=== PATIENT | male | born 1950 | race Caucasian/White ===

== ENCOUNTER 2018-12-16 12:10 | Inpatient (IN) | payer MEDICARE, OTHER ==
[~2018-12-16] VITALS: Ht 172.7 cm; Wt 102.8 kg
[2018-12-16] MEDS ORDERED: ALBUTEROL SULF 2.5 MG/0.5ML(0.5%) NEB SOLN NEB ONE (13:45)
[2018-12-16] MEDS ORDERED: IPRATROPIUM BROM 0.5 MG/2.5ML INH SOL NEB ONE (13:45)
[2018-12-16 14:08] LABS: Albumin 3.5 g/dL (3.4-5.0); Calcium 8.8 mg/dL (8.5-10.1)
[2018-12-16 14:13] LABS: BUN/Creatinine Ratio 17.8; Bilirubin, Total 0.6 mg/dL (0.2-1.0); Total Protein 7.2 g/dL (6.4-8.2)
[2018-12-16 14:27] LABS: Basophils # (auto) 0.1 uL; Basophils % (auto) 0.8 % (0.0-2.0); Eosinophils # (auto) 0.1 uL; Eosinophils % (auto) 1.4 % (0.0-7.0); Lymphocytes # (auto) 1.3 uL; Lymphocytes % (auto) 12.5 % (10.0-50.0); Mean Corpuscular Hemoglobin 31.5 pg (28.0-32.0); Mean Corpuscular Hgb Conc. 33.3 g/dL (32.0-36.0); Mean Corpuscular Volume 94.7 fL (80.0-100.0); Monocytes # (auto) 0.7 uL; Monocytes % (auto) 6.1 % (0.0-12.0); Neutrophils # (auto) 8.5 uL; Neutrophils % (auto) 79.2 % (37.0-80.0); Platelet Count (auto) 279 10^3/uL (140-450); Red Blood Cells 4.12 10^6/uL (4.5-5.90); Red Cell Distribution Width 14.9 % (11.8-14.3); White Blood Cell 10.7 10^3/uL (4.4-10.8)
[2018-12-16] MEDS ORDERED: IOHEXOL 350 MG/ML 100ML IJ ONE (17:03)
[2018-12-16] MEDS ORDERED: METOPROLOL TARTRATE 25 MG TAB PO ONE (22:30)
[2018-12-16] MEDS ORDERED: MORPHINE SULF INJ 2 MG/ML SYRINGE 1ML IV PRN ×2 (22:30)
[2018-12-16] MEDS ORDERED: ENOXAPARIN SOD 100 MG/1 ML SYRINGE SC ONE (22:30)
[2018-12-16] MEDS ORDERED: NITROGLYCERIN 0.4 MG SL TAB SL PRN (22:30)
[2018-12-16] MEDS ORDERED: FUROSEMIDE 40 MG/4 ML VIAL IV ONE (22:45)
[2018-12-16 23:40] VITALS: BP 161/111
--- NOTE | 2018-12-16 23:40 | NUR ---
Telemetry admit from [facility] admitted to Telemetry unit after SBAR received. Patient oriented to MARY BOWLES RN primary RN, unit, room, bed, and unit policies regarding patient care and visiting hours. Patient now on continuous telemetry monitoring, tele box #21 and telemetry reading on arrival to unit is Sinus Tachycardia. Patient placed on bedside oxygen, weighed by bedscale and encouraged to call if they need something. All questions and concerns addressed, patient verbalized understanding.
[2018-12-17] VITALS (7 sets, daily range): BP systolic 138–161; BP diastolic 82–111
[2018-12-17 00:10] LABS: Urine Bacteria NONE SEEN /hpf (None Seen); Urine Blood Negative /uL (Negative); Urine Mucus FEW (None Seen); Urine WBC 2 /hpf (0 - 3)
[2018-12-17 00:15] LABS: Urine Specific Gravity 1.064 (1.001-1.035)
[2018-12-17] MEDS ORDERED: hydrALAZINE HCL 10 MG TAB PO ONE (00:45)
--- NOTE | 2018-12-17 02:16 | NUR ---
Patient ambulated to bathroom. Mild shortness of breath upon returning to bed. Replaced o2 at 2LPM. O2 saturation at 98%
[2018-12-17] MEDS: ALBUTEROL SULF 2.5 MG/0.5ML(0.5%) NEB SOLN NEB PRN (03:51)
[2018-12-17] MEDS: IPRATROPIUM BROM 0.5 MG/2.5ML INH SOL NEB PRN (03:51)
[2018-12-17 05:58] LABS: Basophils # (auto) 0.1 uL; Basophils % (auto) 0.9 % (0.0-2.0); Eosinophils # (auto) 0.1 uL; Hematocrit 39.1 % (41.0-53.0); Hemoglobin 12.9 g/dL (13.5-17.5); Lymphocytes # (auto) 1.8 uL; Lymphocytes % (auto) 18.9 % (10.0-50.0); Mean Corpuscular Hemoglobin 31.5 pg (28.0-32.0); Mean Corpuscular Hgb Conc. 33.1 g/dL (32.0-36.0); Monocytes # (auto) 0.7 uL; Monocytes % (auto) 7.6 % (0.0-12.0); Neutrophils # (auto) 6.9 uL; Neutrophils % (auto) 71.6 % (37.0-80.0); Nucleated Red Blood Cells % 0.1 %; Platelet Count (auto) 285 10^3/uL (140-450); Red Blood Cells 4.11 10^6/uL (4.5-5.90); White Blood Cell 9.6 10^3/uL (4.4-10.8)
[2018-12-17 06:33] LABS: Calcium 8.7 mg/dL (8.5-10.1); Potassium 3.8 mmol/L (3.5-5.1)
--- NOTE | 2018-12-17 07:36 | NUR ---
Endorsed care to day shift RN. Patient in bed awake watching tv with no signs of distress.
--- NOTE | 2018-12-17 07:45 | NUR ---
Opening Shift Note Assumed care of patient, awake and alert, sitting on bed eating breakfast. No S/S of distress/SOB or chest pain. Instructed on POC and to call for assist PRN, will continue to monitor for changes Q1hr and PRN.
--- NOTE | 2018-12-17 07:47 | NUR ---
Respiratory note: PT AWAKE AND ALERT. NO RESPIRATORY DISTRESS NOTED. SPO2 98% ON 2 L NC, HR 107, RR 18, BS CLEAR T/O. PRN MEDNEB TX NOT INDICATED AT THIS TIME. PT INFORMED TO PUSH CALL BUTTON IF INCREASED WOB, SOB, OR WHEEZING OCCUR.
--- NOTE | 2018-12-17 09:45 | NUR ---
pt seen by Dr. Vila
[2018-12-17] MEDS ORDERED: FUROSEMIDE 40 MG/4 ML VIAL IV SCH (10:00)
[2018-12-17] MEDS ORDERED: SPIRONOLACTONE 25 MG TAB PO ONE (10:00)
[2018-12-17] MEDS: ASPirin-EC 81 mg tab PO SCH (10:30)
[2018-12-17] MEDS: ENOXAPARIN SOD 100 MG/1 ML SYRINGE SC SCH ×2 (10:30→21:58)
[2018-12-17] MEDS: PANTOPRAZOLE 40 MG TAB PO SCH (10:30)
[2018-12-17] MEDS: METOPROLOL TARTRATE 25 MG TAB PO SCH ×2 (10:31→21:58)
[2018-12-17] MEDS: FUROSEMIDE 40 MG/4 ML VIAL IV SCH ×2 (10:32→17:32)
--- NOTE | 2018-12-17 17:36 | NUR ---
HEADACHE PT IS COMPLAINING OF HEADACHE 4/10 AND ASKING FOR TYLENOL ,PAGED HOSPITALIST. IZZY CALLED BACK RECEIVED ORDER AND CARRIED OUT.
[2018-12-17] MEDS ORDERED: ACETAMINOPHEN 500 MG TAB PO PRN (17:45)
[2018-12-17] MEDS: ATORVASTATIN 20 MG TAB PO SCH (21:57)
[2018-12-17] MEDS: TEMAZEPAM 15 MG CAP PO PRN (21:58)
--- NOTE | 2018-12-17 22:08 | NUR ---
14 beats of Vtach noted on tele monitor. Patient asleep with breathing even and unlabored. Easily arousable to voice. No distress noted. Will perform EKG.
--- NOTE | 2018-12-17 22:30 | NUR ---
Notified ASPEN Hernández regarding runs of Vtach. Received order to have BMP with magnesium lab drawn in the morning.
--- NOTE | 2018-12-18 03:00 | NUR ---
PT SEEN SLEEPING ON 2L NC WITH SPO2 95%, BS CLEAR AND DIMINISHED, NO RESP DISTRESS NOTED. PRN NEB TX NOT GIVEN AT THIS TIME.
[2018-12-18 04:59] VITALS: BP 128/82
--- NOTE | 2018-12-18 05:50 | NUR ---
Respiratory note: ROUTINE PRN MN TX CHECK. HR 86, RR 20, POX 99% ON 2L/M NC, BREATH SOUNDS ARE CLEAR. NO SOB OR DISTRESS NOTED. PT WAS NOTIFY TO HAVE RT PAGE FOR MN TX.
[2018-12-18 06:15] LABS: BUN/Creatinine Ratio 18.8; Calcium 9.2 mg/dL (8.5-10.1); Magnesium 2.4 mg/dL (1.6-2.6)
[2018-12-18] MEDS: FUROSEMIDE 40 MG/4 ML VIAL IV SCH ×2 (06:15→18:34)
[2018-12-18] MEDS ORDERED: MIDAZOLAM HCL 1MG/1ML-2 ML VIAL ONE (07:21)
[2018-12-18] MEDS ORDERED: ANGIOMAX 250 MG VIAL IV ONE (07:21)
[2018-12-18] MEDS ORDERED: IODIXANOL 320MG/ML 100ML BTL IV ONE ×2 (07:22→08:09)
[2018-12-18] MEDS ORDERED: SODIUM CHL 0.9% 50 ML ONE (07:22)
[2018-12-18] MEDS ORDERED: LIDOCAINE 2%HCL (LOCAL ANESTH.) INJ 20ML MDV ONE (07:22)
[2018-12-18] MEDS ORDERED: fentaNYL CITRATE 100 MCG/2 ML VL ONE (07:25)
--- NOTE | 2018-12-18 07:31 | NUR ---
Pt transported to terrazzo laborer via bed, with pre-op checklist completed, consents for procedure signed.
[2018-12-18] MEDS ORDERED: VERAPAMIL 2.5MG/ML INJ 2ML VIAL IV ONE (07:36)
[2018-12-18 08:00] VITALS: BP_SYST 149; BP_SYST 157; BP_DIAS 107; BP_DIAS 89
[2018-12-18] MEDS ORDERED: ASPirin 325 MG TAB ONE (08:44)
[2018-12-18] MEDS ORDERED: TICAGRELOR 90 MG TAB ONE (08:44)
--- NOTE | 2018-12-18 09:53 | NUR ---
received report from MELECIO Vogel.
[2018-12-18] MEDS: ASPirin-EC 81 mg tab PO SCH ×2 (09:54→09:55)
--- NOTE | 2018-12-18 10:05 | NUR ---
received pt from Cathlab via bed, pt is awake and alert, no signs of distress at this time. noted vasc band on left wrist.
--- NOTE | 2018-12-18 10:10 | NUR ---
started deflating vasc band, no bleeding noted.
[2018-12-18] MEDS: PANTOPRAZOLE 40 MG TAB PO SCH (10:21)
[2018-12-18] MEDS: METOPROLOL TARTRATE 25 MG TAB PO SCH ×2 (10:22→22:19)
--- NOTE | 2018-12-18 12:30 | NUR ---
vasc band removed, gauze and tegaderm applied.
[2018-12-18 13:28] VITALS: BP 145/68
[2018-12-18 17:00] VITALS: BP 136/96
[2018-12-18] MEDS ORDERED: CLOPIDOGREL 300 MG TAB PO ONE (18:30)
--- NOTE | 2018-12-18 20:00 | NUR ---
RECEIVED PT, SITTING UP IN BED, A/O X4, IN NO ACUTE DISTRESS, DENIES PAIN. L WRIST DSG CLEAN, DRY, INTACT, PULSE PALPABLE. POC REVIEWED WITH PT, VERBALIZED UNDERSTANDING. CALL LIGHT WITHIN REACH, ENCOURAGED TO CALL IF HELP IS NEEDED. SIDE RAILS UP X2, BED IN LOWEST LOCKED POSITION, NON SKID SOCKS ON. CONTINUE CARE.
--- NOTE | 2018-12-18 22:10 | NUR ---
Respiratory note: PT SEEN AND ASSESSED FOR PRN MED NEB TX AT 2210. TX NOT INDICATED AT THIS TIME. PT IS NOT DISPLAYING ANY SIGNS OF RESPIRATORY DISTRESS. BREATH SOUNDS WERE CLEAR AND DIMINISHED BILATERALLY. HR 65 RR 16 POX 96% ON 1L NASAL CANNULA. PT AWARE TO CALL FOR RT IF ANY DISTRESS OCCURS.
[2018-12-18] MEDS: ALBUTEROL SULF 2.5 MG/0.5ML(0.5%) NEB SOLN NEB PRN (22:17)
[2018-12-18] MEDS: IPRATROPIUM BROM 0.5 MG/2.5ML INH SOL NEB PRN (22:17)
[2018-12-18] MEDS: TEMAZEPAM 15 MG CAP PO PRN (22:19)
[2018-12-18] MEDS: ATORVASTATIN 20 MG TAB PO SCH (22:19)
[2018-12-18 22:48] VITALS: BP 157/118
[2018-12-19 05:16] VITALS: BP 119/80
[2018-12-19] MEDS: FUROSEMIDE 40 MG/4 ML VIAL IV SCH (06:15)
--- NOTE | 2018-12-19 08:22 | NUR ---
Respiratory note: PRN MED NEB TX NOT INDICATED AT THIS TIME. HR 97,RR 14, SPO2 97% ON 1 L NC, BS CLEAR. NO SIGNS OR SYMPTOMS OF RESPIRATORY DISTRESS NOTED. PT INFORMED TO HIT CALL BUTTON IF FEELING SOB OR WHEEZING. Addendum: 12/19/18 at 0834 by CHARLOTTE FERNANDEZ RT CORRECTION: PT NOT ON 1 L NC. PT ON RA.
[2018-12-19 09:00] VITALS: BP 137/80
[2018-12-19] MEDS: METOPROLOL TARTRATE 25 MG TAB PO SCH (09:13)
[2018-12-19] MEDS: PANTOPRAZOLE 40 MG TAB PO SCH (09:14)
[2018-12-19] MEDS: ASPirin-EC 81 mg tab PO SCH (09:14)
[2018-12-19] MEDS ORDERED: CLOPIDOGREL BISULFATE 75 MG TAB PO SCH (10:00)
[2018-12-19 13:13] VITALS: BP 145/104
--- NOTE | 2018-12-19 13:22 | NUR ---
pt seen by Dr. Lopez pt was instructed to follow up with Dr. Vila in 4 weeks and take his medication as prescribed , pt verbalized he will follow up.
[2018-12-19 14:05] VITALS: BP 145/68
--- NOTE | 2018-12-19 14:55 | NUR ---
Genny Maher arranged the follow up appointment with Dr. Lopez as his new PCP on December 27 at 2:20 pm, appointment pocket given to pt.
--- NOTE | 2018-12-19 15:25 | NUR ---
Discharge instructions given as ordered. Encourage to follow up with Dr. Lopez on December 27 at 2:20pm as instructed. All questions and concerns addressed. Patient verbalized understanding. Medication reconciliation form completed and copy given to patient. IV removed with catheter intact, pressure dressing applied. Telemetry unit returned to ICU. Patient taken to vehicle via wheelchair with all personal belongings, accompanied by staff and family member. No distress noted at time of departure.
== END 2018-12-19 15:25 | disposition home or self-care (01) | DRG 246 ==
LOC: ER 12:12 → TELE 12:13 → TELE-WESTW 23:40
PROVIDERS: ADMIT Nurse Practitioner Family; ATTEND Internal Medicine Nephrology
PROC: 027034Z Dilation of Coronary Artery, One Artery with Drug-eluting Intraluminal Device, Percutaneous Approach (ICD-10-PCS; principal; 2018-12-18)
PROC: 4A023N7 Measurement of Cardiac Sampling and Pressure, Left Heart, Percutaneous Approach (ICD-10-PCS; 2018-12-18)
PROC: B211YZZ Fluoroscopy of Multiple Coronary Arteries using Other Contrast (ICD-10-PCS; 2018-12-18)
DX: I21.4 Non-ST elevation (NSTEMI) myocardial infarction (principal); I50.43 Acute on chronic combined systolic (congestive) and diastolic (congestive) heart failure; I08.1 Rheumatic disorders of both mitral and tricuspid valves; I11.0 Hypertensive heart disease with heart failure; I25.110 Atherosclerotic heart disease of native coronary artery with unstable angina pectoris; E66.9 Obesity, unspecified; Z87.891 Personal history of nicotine dependence; Z68.34 Body mass index [BMI] 34.0-34.9, adult; Z88.8 Allergy status to other drugs, medicaments and biological substances; Z72.89 Other problems related to lifestyle; Z79.899 Other long term (current) drug therapy; Z83.3 Family history of diabetes mellitus
CPT/HCPCS: 36415; 71045; 71275; 80048; 80053; 80061; 81001; 82962; 83735; 83880; 84484; 85025; 85379; 92928; 93005; 93306; 93458; 94640; 99152; 99153; G0378; J2250; Q9967

== ENCOUNTER 2018-12-22 08:39 | Inpatient (IN) | payer MEDICARE ==
[~2018-12-22] VITALS: Ht 175.3 cm; Wt 96.5 kg
[2018-12-22] MEDS ORDERED: FUROSEMIDE 40 MG/4 ML VIAL IV ONE (09:15)
[2018-12-22 09:41] LABS: Basophils # (auto) 0.1 uL; Basophils % (auto) 1.4 % (0.0-2.0); Eosinophils # (auto) 0.3 uL; Eosinophils % (auto) 2.9 % (0.0-7.0); Hemoglobin 13.2 g/dL (13.5-17.5); Lymphocytes # (auto) 1.8 uL; Lymphocytes % (auto) 18.7 % (10.0-50.0); Mean Corpuscular Hemoglobin 31.3 pg (28.0-32.0); Mean Corpuscular Volume 94.8 fL (80.0-100.0); Monocytes # (auto) 0.9 uL; Monocytes % (auto) 8.7 % (0.0-12.0); Neutrophils # (auto) 6.7 uL; Neutrophils % (auto) 68.3 % (37.0-80.0); Platelet Count (auto) 286 10^3/uL (140-450); Red Blood Cells 4.22 10^6/uL (4.5-5.90); Red Cell Distribution Width 14.9 % (11.8-14.3); White Blood Cell 9.8 10^3/uL (4.4-10.8)
[2018-12-22 09:56] LABS: Albumin 3.4 g/dL (3.4-5.0); Calcium 9.3 mg/dL (8.5-10.1); Potassium 4.5 mmol/L (3.5-5.1)
[2018-12-22 10:02] LABS: BUN/Creatinine Ratio 15.7; Bilirubin, Total 0.4 mg/dL (0.2-1.0); Total Protein 7.4 g/dL (6.4-8.2)
[2018-12-22] MEDS ORDERED: ATOR40TA52 PO (11:03)
[2018-12-22] MEDS ORDERED: FURO40TA4 PO (11:03)
[2018-12-22] MEDS ORDERED: CLOP75TA41 PO (11:03)
[2018-12-22] MEDS ORDERED: METO25TA5 PO (11:03)
[2018-12-22] MEDS ORDERED: MET50T PO (11:03)
[2018-12-22] MEDS ORDERED: SPIR25TA8 PO (11:03)
[2018-12-22] MEDS ORDERED: ASPI-231 PO (11:03)
[2018-12-22] MEDS ORDERED: ALBUTEROL SULF 2.5 MG/0.5ML(0.5%) NEB SOLN NEB PRN (11:15)
[2018-12-22] MEDS ORDERED: LACTULOSE 20Gm/30ML SOLN PO PRN (11:15)
[2018-12-22] MEDS ORDERED: MORPHINE SULF INJ 2 MG/ML SYRINGE 1ML IV PRN (11:15)
[2018-12-22] MEDS ORDERED: NITROGLYCERIN 0.4 MG SL TAB SL PRN (11:15)
[2018-12-22] MEDS ORDERED: PROMETHAZINE HCL 25 MG/ML 1ML IV PRN (11:15)
[2018-12-22] MEDS ORDERED: ACETAMINOPHEN 500 MG TAB PO PRN (11:15)
[2018-12-22] MEDS ORDERED: traMADol HCL 50 MG TAB PO PRN (11:15)
[2018-12-22] MEDS: cefTRIAXone 1GM/50ML D5W 50 ML IV SCH (11:46)
[2018-12-22] MEDS: ALBUTEROL SULF 2.5 MG/0.5ML(0.5%) NEB SOLN NEB SCH ×3 (11:59→23:04)
[2018-12-22] MEDS: IPRATROPIUM BROM 0.5 MG/2.5ML INH SOL NEB SCH ×3 (11:59→23:04)
[2018-12-22] MEDS ORDERED: AMIODARONE HCL 150 MG in D5W 5% 100 ML IV ONE (13:15)
--- NOTE | 2018-12-22 13:50 | NUR ---
Received SBAR report from Ralph MAJANO.
[2018-12-22] MEDS: AMIODARONE HCL 200 MG TAB PO SCH ×2 (14:00→21:35)
[2018-12-22] MEDS: CLINDAMYCIN 600MG IV 50 ML IV SCH ×2 (14:00→21:36)
--- NOTE | 2018-12-22 14:10 | NUR ---
Telemetry admit from ER LAURI SHIELDS admitted to Telemetry unit after SBAR received. Patient oriented to Saira Pineda, primary RN, unit, room, bed, and unit policies regarding patient care and visiting hours. Patient now on continuous telemetry monitoring, tele box #[id number] and telemetry reading on arrival to unit is SR. Patient placed on bedside oxygen AT 2L, weighed by bedscale and encouraged to call if they need something. All questions and concerns addressed, patient verbalized understanding.
[2018-12-22 14:30] VITALS: BP 139/90
[2018-12-22 17:00] VITALS: BP 136/82
--- NOTE | 2018-12-22 19:30 | NUR ---
Opening Shift Note Assumed care of patient, awake and alert oriented x4. No S/S of distress/SOB or pain noted. Instructed on POC and to call for assist PRN. Bed is in lowest locked position with bed rails up x2 and call light is within reach of the patient.
[2018-12-22] MEDS: TEMAZEPAM 15 MG CAP PO PRN (21:33)
[2018-12-22] MEDS: ATORVASTATIN 20 MG TAB PO SCH (21:34)
[2018-12-22] MEDS: METOPROLOL TARTRATE 50 MG TAB PO SCH (21:36)
--- NOTE | 2018-12-22 21:36 | NUR ---
RESPIRATORY CULTURE: LEFT CUP AT BEDSIDE AND EDUCATED PATIENT ABOUT THE NEED TO HAVE RESPIRATORY CULTURE SAMPLE OF SPUTUM. PATIENT STATED "Why do I need that? Im not coughing up anything now. I was earlier." EDUCATED PATIENT ABOUT THE NEED OF SPUTUM SAMPLE AND DOCTORS ORDERS IF THEY HAVE SPUTUM AGAIN. PATIENT VERBALIZED UNDERSTANDING AND IS TO NOTIFY NURSE IF SAMPLE IS COLLECTED.
[2018-12-22 22:00] VITALS: BP 153/98
--- NOTE | 2018-12-22 23:00 | NUR ---
Patient states having SOB and is anxious: Patient had complaints of shortness of breath, went to assess patient. Lung sounds clear, vital signs assessed. Temperature 97.5, blood pressure 114/ 82, heart rate 90, respiratory rate 22, oxygen saturation 99%. Paged Respiratory for treatment for patients SOB.
--- NOTE | 2018-12-23 03:01 | NUR ---
Hospitalist paged: Paged hospitalist regarding patients anxiety and feeling SOB. Lung sounds are clear and oxygen saturations are stable at 96% on 3 liters. To notify hospitalist. Patient states "I just want to sleep."
[2018-12-23 05:00] VITALS: BP 110/74
[2018-12-23] MEDS: CLINDAMYCIN 600MG IV 50 ML IV SCH ×3 (05:34→21:51)
[2018-12-23] MEDS: AMIODARONE HCL 200 MG TAB PO SCH ×3 (05:35→21:49)
--- NOTE | 2018-12-23 05:55 | NUR ---
PATIENT ANXIOUS STATES SOB: PATIENT STATED THEY WERE HAVING SYMPTOMS OF SOB 30 MINUTES AFTER CORDARONE DOSE STATING "I was feeling fine till you gave me that heart medication." PATIENT SEEMS ANXIOUS SITTING UP IN BED, PATIENT DOES NOT SEEM TO BE IN ACUTE DISTRESS. VITAL SIGNS ASSESSED TEMPERATURE 97.4, BLOOD PRESSURE 117/84, HEART RATE 82, OXYGEN SATURATION 99% AND 24 RESPIRATORY RATE. TO PAGE HOSPITALIST.
--- NOTE | 2018-12-23 06:00 | NUR ---
HOSPITALIST PAGED: HOSPITALIST PAGED REGARDING PATIENTS ANXIETY AND SOB SYMPTOMS. WAITING FOR CALL BACK FROM HOSPITALIST.
[2018-12-23] MEDS: IPRATROPIUM BROM 0.5 MG/2.5ML INH SOL NEB SCH ×3 (06:30→19:10)
--- NOTE | 2018-12-23 06:30 | NUR ---
PAGED HOSPITALIST AGAIN: STILL HAVE NOT RECEIVED CALL FROM HOSPITALIST. WAITING FOR CALL BACK FROM HOSPITALIST TO NOTIFY ABOUT PATIENTS ANXIETY.
[2018-12-23] MEDS: ALBUTEROL SULF 2.5 MG/0.5ML(0.5%) NEB SOLN NEB SCH ×3 (06:31→19:10)
--- NOTE | 2018-12-23 06:53 | NUR ---
HOSPITALIST CALLED BACK: HOSPITALIST KELLEY CALLED BACK. ORDERED ATIVAN 1MG IV [id number] PRN FOR PATIENT FOR ANXIETY. TO PLACE AND CARRY OUT ORDERS.
[2018-12-23] MEDS: LORazepam 2MG/ML-1ML VIAL IV PRN ×2 (07:03→15:14)
[2018-12-23] MEDS: cefTRIAXone 1GM/50ML D5W 50 ML IV SCH (08:56)
[2018-12-23 09:34] VITALS: BP 101/75
[2018-12-23] MEDS: FUROSEMIDE 40 MG/4 ML VIAL IV SCH (09:58)
[2018-12-23] MEDS: PANTOPRAZOLE 40 MG TAB PO SCH (09:59)
[2018-12-23] MEDS: ASPirin-EC 81 mg tab PO SCH (09:59)
[2018-12-23] MEDS: POTASSIUM CHL 20 Meq TABLET PO SCH (09:59)
[2018-12-23] MEDS: CLOPIDOGREL BISULFATE 75 MG TAB PO SCH (09:59)
[2018-12-23] MEDS: METOPROLOL TARTRATE 50 MG TAB PO SCH ×2 (10:00→21:49)
[2018-12-23] MEDS: ENOXAPARIN SOD 40 MG/0.4 ML SYRINGE SC SCH (10:00)
[2018-12-23] MEDS: ENALAPRIL MALEATE 2.5 MG TAB PO SCH (10:00)
[2018-12-23] MEDS: SPIRONOLACTONE 25 MG TAB PO SCH (10:01)
[2018-12-23] MEDS: NITROGLYCERIN 0.2MG/HR TOPICAL PATCH TD SCH (10:01)
--- NOTE | 2018-12-23 11:35 | NUR ---
Pt seen by Dr. Martell
[2018-12-23 13:20] VITALS: BP 120/75
--- NOTE | 2018-12-23 13:34 | NUR ---
cardiology consult still pending, [facility] community arts worker made aware.
[2018-12-23 17:25] VITALS: BP 112/76
[2018-12-23] MEDS: ATORVASTATIN 20 MG TAB PO SCH (21:48)
[2018-12-23] MEDS: TEMAZEPAM 15 MG CAP PO PRN (21:50)
[2018-12-23 22:00] VITALS: BP 135/87
[2018-12-24] MEDS: IPRATROPIUM BROM 0.5 MG/2.5ML INH SOL NEB SCH ×4 (00:14→19:52)
[2018-12-24] MEDS: ALBUTEROL SULF 2.5 MG/0.5ML(0.5%) NEB SOLN NEB SCH ×4 (00:14→19:52)
[2018-12-24] MEDS: LORazepam 2MG/ML-1ML VIAL IV PRN ×2 (00:28→15:59)
--- NOTE | 2018-12-24 02:00 | NUR ---
PATIENT ANXIOUS SOB AND UNCOMFORTABLE: Patient has been having frequent episodes of discomfort when attempting to sleep and is short of breath. Vital signs Blood pressure 109/65, heart rate 65, 30 respiratory rate, oxygen saturation 95%. Patient states he is uncomfortable. assessed lung sounds and lung sounds are clear. Paged respiratory to assess patient. Respiratory assessed patient but patient refused breathing treatment. To page hospitalist. Addendum: 12/24/18 at 0811 by Jael Floyd RN RN Patient has persistent sleepiness where he wants to get up at the side of the bed because hes uncomfortable laying in bed. Patient has frequent periods of falling asleep for seconds and waking up against with shortness of breath. Patient very anxious. and states " I just cant get comfortable in this bed. I just want to sleep." When asked what the patient is feeling and experiencing patient states "I dont know. I just cant catch my breath. Patient places nasal cannula two liters on and off. Patient educated to keep nasal cannula on, but patient chooses to remove or place it when he wants.
--- NOTE | 2018-12-24 02:20 | NUR ---
Hospitalist paged: Paged hospitalist regarding discomfort of patient and SOB. Waiting for call back.
--- NOTE | 2018-12-24 03:30 | NUR ---
HOSPITALIST CALLED BACK: HOSPITALIST KELLEY CALLED BACK AND UPDATED ON PATIENT STATUS OF SOB AND ANXIETY. ORDERED ATIVAN 1MG IV ONCE AND BENADRYL 25MG IV ONCE. TO PLACE AND CARRY OUT ORDERS.
[2018-12-24] MEDS ORDERED: diphenhdrAMINE HCL 50 MG/1 ML VL IV ONE (03:45)
[2018-12-24] MEDS ORDERED: LORazepam 2MG/ML-1ML VIAL IV ONE ×2 (03:45→09:15)
--- NOTE | 2018-12-24 04:48 | NUR ---
PATIENT MOVED FROM ROOM 295A to 276A with belonging transferred with the patient.
--- NOTE | 2018-12-24 04:50 | NUR ---
Patient still anxious reports SOB and discomfort: Patient falls asleep after two second of being awake and then wakes up again second later with shortness of breath. Vital signs assessed 97.6 temperature, 63 pulse, 25 respirations, 125/84 blood pressure, 98% oxygen saturations. Patient agitated wants to get out of bed but is not safe to get out of bed with unsteady gait and still has shortness of breath. Patient only able to answer place and self at this time. To notify hospitalist about patients shortness of breath and sleepiness.
[2018-12-24 05:00] VITALS: BP 125/84
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
--- NOTE | 2018-12-24 05:15 | NUR ---
Hospitalist paged: Stayed at bedside with the patient and paged the hospitalist to notify about patients mental status, grogginess, restlessness and shortness off breath. Waiting for call back.
--- NOTE | 2018-12-24 05:17 | NUR ---
Hospitalist called back: Hospitalanthony Amezcua called back and notified about patients mental status, grogginess and restlessness and shortness of breath. Hospitalanthony Amezcua aware and made aware of patients persistent shortness of breath episodes of sleepiness. Hospitalanthony Amezcua ordered Lasix 20mg IV once and a straight cath for the patient. To place and carry out orders.
[2018-12-24] MEDS ORDERED: FUROSEMIDE 20 MG/2 ML VIAL IV ONE (05:30)
--- NOTE | 2018-12-24 05:35 | NUR ---
PATIENT REFUSED STRAIGHT CATH: PATIENT REFUSED STRAIGHT CATH CATHETER AFTER ADMINISTERING IV LASIX STATING "I dont need a catheter I can use a urinal!" EDUCATED PATIENT ABOUT THE RATIONAL ABOUT THE STRAIGHT CATH AND PATIENT STILL REFUSED AT THIS TIME INSISTING TO USE A URINAL.
--- NOTE | 2018-12-24 06:09 | NUR ---
Respiratory note: ARRIVED IN PT ROOM TO ADMINISTER MED NEB TX. RN AT BEDSIDE DURING TX DUE TO PT CONTINUALLY TRYING TO GET OUT OF BED. PT WAS SITTING AT EDGE OF BED AND WOULD REPEATEDLY TIP FORWARD. HE REFUSED SIT IN BED PROPERLY. RN WAS DILIGENTLY MAKING EVERY EFFORT SO PT WOULD NOT FALL OUT OF BED. DURING THIS TIME PT WAS PULLING OFF HIS OXYGEN AND PULLING OFF HIS BREATHING TX. SPENT 20 MINS IN THE ROOM WITH THE PT AND RN TRYING TO COMPLETE HIS MED NEB TX AND CONTINUOUSLY PLACE HIM BACK ON OXYGEN.
[2018-12-24] MEDS: CLINDAMYCIN 600MG IV 50 ML IV SCH ×3 (06:49→22:55)
[2018-12-24] MEDS: AMIODARONE HCL 200 MG TAB PO SCH ×3 (06:51→22:56)
--- NOTE | 2018-12-24 07:15 | NUR ---
Closing note: Patient still agitated and restless in bed, still falling asleep for short periods of time and waking up with shortness of breath and attempting to get out of bed. Bed is in lowest locked position with bed rails up x2 and sitter is at the bedside with bed alarm armed. Care endorsed to day shift nurse.
--- NOTE | 2018-12-24 07:42 | NUR ---
Called Doctor Jeet and left message: Called Doctor Arianna office and left message with it program manager to notify him about patients status regarding shortness of breath episodes, restlessness and being unable to sleep and only falling asleep for short periods of time with unsteady gait and increased agitation. Notified day shift RN and awaiting call back.
--- NOTE | 2018-12-24 08:00 | NUR ---
DENIES ANY CHEST PAIN. DOES HAVE LABORED BREATHING. OXYGEN SATURATION 99 ON 2 LITERS OXYGEN VIA NASAL CANULA.
--- NOTE | 2018-12-24 09:30 | NUR ---
DR WILEY AT BEDSIDE. DISCUSSED PLAN OF CARE PATIENT VERBALIZED UNDERSTANDING.
--- NOTE | 2018-12-24 09:30 | NUR ---
Respiratory note: ARRIVED IN PTS ROOM AFTER ORDER RECEIVED TO PLACE PT ON CPAP FOR SLEEP APNEA. PT WAS AWAKE AND KNEELING AT SIDE OF BED WITH RN AND SITTER AT BEDSIDE. SPOKE TO PT ABOUT WEARING THE CPAP MASK WHILE SLEEPING. PT DECLINED. PT APPEARS ALERT AND ORIENTED. RN AWARE OF PT REFUSAL.
--- NOTE | 2018-12-24 11:00 | NUR ---
RT AT BEDSIDE WITH CPAP. PATIENT REFUSED CPAP AT THIS TIME.
--- NOTE | 2018-12-24 12:00 | NUR ---
Respiratory note: UNABLE TO PLACE PT ON CPAP PER DR Julien LION AT THIS ITME Addendum: 12/24/18 at 1224 by CHARLOTTE FERNANDEZ RT PT IS PREPARING TO EAT LUNCH WITH SITTER AT BEDSIDE. WILL COME BACK AFTER LUNCH TO PLACE PT ON CPAP AND BEDSIDE POX.
[2018-12-24] MEDS: SPIRONOLACTONE 25 MG TAB PO SCH (14:09)
[2018-12-24] MEDS: ASPirin-EC 81 mg tab PO SCH (14:09)
[2018-12-24] MEDS: cefTRIAXone 1GM/50ML D5W 50 ML IV SCH (14:09)
[2018-12-24] MEDS: PANTOPRAZOLE 40 MG TAB PO SCH (14:10)
[2018-12-24] MEDS: ENOXAPARIN SOD 40 MG/0.4 ML SYRINGE SC SCH (14:10)
[2018-12-24] MEDS: CLOPIDOGREL BISULFATE 75 MG TAB PO SCH (14:10)
[2018-12-24] MEDS: POTASSIUM CHL 20 Meq TABLET PO SCH (14:10)
[2018-12-24] MEDS: NITROGLYCERIN 0.2MG/HR TOPICAL PATCH TD SCH (14:12)
[2018-12-24] MEDS: ENALAPRIL MALEATE 2.5 MG TAB PO SCH (14:13)
[2018-12-24] MEDS: FUROSEMIDE 40 MG/4 ML VIAL IV SCH (14:14)
[2018-12-24] MEDS: METOPROLOL TARTRATE 50 MG TAB PO SCH ×2 (14:14→22:00)
--- NOTE | 2018-12-24 14:38 | NUR ---
PT SITTING UP IN CHAIR AT BEDSIDE. PT IS REFUSING BIPAP. PT ESTATES HE "MIGHT GIVE IT A TRY LATER" WHEN HE IS READY "TO GO TO BED". PT ON RA, 98% O2 SATS, HR 57 BPM, RR18 BS ARE BIBASILAR DIMINISHED, CLEAR TO THE UPPER AW. SKIN IS DRY AND WARM TO TOUCH. NO SOB, WOB OR ANY OTHER RESPIRATORY DISTRESS NOTICED. MELECIO HOLLIS WAS INFORMED. WILL CONTINUE TO MONITOR PT.
--- NOTE | 2018-12-24 14:51 | NUR ---
CONTINUES TO REFUSE CPAP.
[2018-12-24 17:00] VITALS: BP 122/71
--- NOTE | 2018-12-24 18:00 | NUR ---
AMBULATED WITH ASSISTANCE OF WAITER/WAITRESS ROOM SERVICE AROUND THE NURSING STATION NO SIGNS OF DISTRESS.
[2018-12-24 18:43] LABS: Alcohol, Urine < 3.0 mg/dL (0-5); Amphetamine Screen, Urine NEGATIVE (NEGATIVE); Barbiturate Scree,Urine NEGATIVE (NEGATIVE); Benzodiazephine Screen, Urine POSITIVE (NEGATIVE); Cannabinoid Screen, Urine NEGATIVE (NEGATIVE); Cocaine Screen, Urine NEGATIVE (NEGATIVE); Opiate Scree,Urine NEGATIVE (NEGATIVE); Phencyclidine Screen, Urine NEGATIVE (NEGATIVE)
--- NOTE | 2018-12-24 19:20 | NUR ---
Opening Shift Note Report received from day shift RN. Assumed care of patient. Patient sitting in bed awake and alert x4. Patient is restless and has a sitter at bedside for safety. No S/S of distress/SOB noted and patient denies pain at this time. Instructed on POC and to call for assist PRN, will continue to monitor for changes Q1hr and PRN.
[2018-12-24 22:00] VITALS: BP 109/71
--- NOTE | 2018-12-24 22:30 | NUR ---
Patient ambulating around the nurse's station with FARM SPECIALIST. No s/s of distress noted.
[2018-12-24] MEDS: TEMAZEPAM 15 MG CAP PO PRN (22:55)
[2018-12-24] MEDS: ATORVASTATIN 20 MG TAB PO SCH (22:55)
[2018-12-25] VITALS (7 sets, daily range): BP systolic 99–122; BP diastolic 57–72
[2018-12-25] MEDS: ALBUTEROL SULF 2.5 MG/0.5ML(0.5%) NEB SOLN NEB SCH ×4 (00:34→18:46)
[2018-12-25] MEDS: IPRATROPIUM BROM 0.5 MG/2.5ML INH SOL NEB SCH ×4 (00:35→18:46)
[2018-12-25] MEDS: LORazepam 2MG/ML-1ML VIAL IV PRN (00:43)
--- NOTE | 2018-12-25 02:08 | NUR ---
No specific orders for heart cath. Patient not aware of procedure. Consents left blank in the chart.
[2018-12-25 05:16] LABS: Basophils # (auto) 0.1 uL; Basophils % (auto) 0.7 % (0.0-2.0); Eosinophils # (auto) 0 uL; Eosinophils % (auto) 0.6 % (0.0-7.0); Hematocrit 35.3 % (41.0-53.0); Hemoglobin 11.9 g/dL (13.5-17.5); Lymphocytes # (auto) 1.7 uL; Mean Corpuscular Hemoglobin 31.4 pg (28.0-32.0); Mean Corpuscular Hgb Conc. 33.6 g/dL (32.0-36.0); Mean Corpuscular Volume 93.4 fL (80.0-100.0); Monocytes # (auto) 0.9 uL; Monocytes % (auto) 10.1 % (0.0-12.0); Neutrophils # (auto) 6.1 uL; Neutrophils % (auto) 69.6 % (37.0-80.0); Nucleated Red Blood Cells % 0.1 %; Platelet Count (auto) 263 10^3/uL (140-450); Red Blood Cells 3.78 10^6/uL (4.5-5.90); Red Cell Distribution Width 14.6 % (11.8-14.3); White Blood Cell 8.8 10^3/uL (4.4-10.8)
[2018-12-25 05:40] LABS: INR 1.12 (0.9-1.15); Partial Thromboplastin Time 28.2 sec (23.64-32.05)
[2018-12-25 05:44] LABS: Albumin 3.5 g/dL (3.4-5.0); Calcium 8.8 mg/dL (8.5-10.1)
[2018-12-25 05:48] LABS: BUN/Creatinine Ratio 20.3; Bilirubin, Total 0.7 mg/dL (0.2-1.0); Total Protein 6.7 g/dL (6.4-8.2)
[2018-12-25] MEDS: CLINDAMYCIN 600MG IV 50 ML IV SCH ×3 (06:08→22:01)
[2018-12-25] MEDS: AMIODARONE HCL 200 MG TAB PO SCH ×3 (06:09→22:01)
--- NOTE | 2018-12-25 08:00 | NUR ---
Opening Shift Note Assumed care of patient, resting with eyes closed respirations even and labored. Sitter at bedside r/t patient removing oxygen on previous shifts. No S/S of distress/SOB or pain. Will continue to monitor for changes Q1hr and PRN.
--- NOTE | 2018-12-25 09:45 | NUR ---
ACTIVITIES VOLUNTEER Call placed to research laboratory manager to verify patient procedure and morning medications. Per blood bank laboratory professional patient not on schedule, advised to call Dr Marcano for verification of both. Message left with Dr Marcano.
[2018-12-25] MEDS: ASPirin-EC 81 mg tab PO SCH (10:00)
[2018-12-25] MEDS: CLOPIDOGREL BISULFATE 75 MG TAB PO SCH (10:00)
[2018-12-25] MEDS: ENOXAPARIN SOD 40 MG/0.4 ML SYRINGE SC SCH (10:00)
[2018-12-25] MEDS: NITROGLYCERIN 0.2MG/HR TOPICAL PATCH TD SCH (10:00)
--- NOTE | 2018-12-25 10:00 | NUR ---
Per Dr Marcano patient will have procedure today and ok to administer Clopidogrel. newspaper carriers supervisor made aware and patients plans for procedure and will call to add patient to wood preserving plant laborer.
--- NOTE | 2018-12-25 10:05 | NUR ---
CONSENTS UNSIGNED Patient states he has not had procedure explained by Doctor. Will not have patient sign consents at this time.
[2018-12-25] MEDS: FUROSEMIDE 40 MG/4 ML VIAL IV SCH (10:11)
[2018-12-25] MEDS: cefTRIAXone 1GM/50ML D5W 50 ML IV SCH (10:11)
[2018-12-25] MEDS: PANTOPRAZOLE 40 MG TAB PO SCH (10:12)
[2018-12-25] MEDS: SPIRONOLACTONE 25 MG TAB PO SCH (10:12)
[2018-12-25] MEDS: POTASSIUM CHL 20 Meq TABLET PO SCH (10:12)
[2018-12-25] MEDS: METOPROLOL TARTRATE 50 MG TAB PO SCH ×2 (10:20→22:01)
[2018-12-25] MEDS: ENALAPRIL MALEATE 2.5 MG TAB PO SCH (10:21)
[2018-12-25] MEDS: SODIUM CHLORIDE 0.9% 1,000 ML IV SCH ×2 (10:30→23:50)
--- NOTE | 2018-12-25 11:30 | NUR ---
PULMONOLOGY CONSULT SCHOOL HEALTH ASSISTANT at bedside states Dr Lawrence rounded on patient and recommends patient to have outpatient sleep study, wear CPAP while sleeping and to not use more than 3L N/C.
--- NOTE | 2018-12-25 12:10 | NUR ---
RETURN TO UNIT Patient back from CT no s/s distress.
--- NOTE | 2018-12-25 12:15 | NUR ---
Nutrition Assessment Notes please see attached link for complete assessment Est. Needs ABW (88 kg): 2313-6398 kcal (23-25 kcal/kgBW), 70-88 gms pro (0.8-1.0 gms/kgBW r/t eleV RFT). Will continue to monitor pertinent labs and reassess nutrient need prn Addendum: 12/25/18 at [address] Amended: Links added.
--- NOTE | 2018-12-25 13:09 | NUR ---
OFF UNIT Patient taken off unit via bed with oxygen to research laboratory technician. Will monitor for patient return.
--- NOTE | 2018-12-25 13:30 | NUR ---
RETURN TO UNIT Patient returned to unit. Per shop laborer patient will not have procedure done and ok to resume diet.
--- NOTE | 2018-12-25 19:20 | NUR ---
RECEIVED PATIENT FROM DAY SHIFT RN. PATIENT RESTING IN BED. NO S/S OF DISTRESS NOTED. DENIED PAIN FOR NOW. IV SITE SWOLLEN NOTED. STOPPED IV FLUID. WILL COME BACK FOR IV LATER. POC INSTRUCTED AND ENCOURAGED PATIENT TO CALL FOR WORKERS COMPENSATION DEFENSE ATTORNEY IF NEEDED. BED IN LOWEST POSITION WITH SIDE RAILS UP X 2. CALL HAYES WITHIN REACH. ALARM ON. SITTER AT BEDSIDE FOR SAFETY. CONTINUE TO MONITOR FOR CHANGES Q1H AND PRN.
--- NOTE | 2018-12-25 21:02 | NUR ---
IV insertion IV access obtained, via clean sterile technique by inserting [22] gauge catheter at [RFA] after [1] attempt(s). IV secured properly. No trauma to site. Patient tolerated well. IV ON RH removal IV DC'd with clean sterile technique, catheter fully intact. Pressure dressing applied to site. Patient tolerated well. NOTE:
[2018-12-25] MEDS: ATORVASTATIN 20 MG TAB PO SCH (22:01)
[2018-12-26] MEDS: IPRATROPIUM BROM 0.5 MG/2.5ML INH SOL NEB SCH ×4 (00:19→19:32)
[2018-12-26] MEDS: ALBUTEROL SULF 2.5 MG/0.5ML(0.5%) NEB SOLN NEB SCH ×4 (00:19→19:32)
--- NOTE | 2018-12-26 00:19 | NUR ---
Respiratory note: PT CURRENTLY GETTING SCHED MED NEB TX. PT STATES HE DIDNT WANT CPAP AT THIS TIME, THAT HE SLEPT ALL DAY AND WILL BE UP ALL NIGHT. INFORMED PT TO CONTACT RESPIRATORY WHEN HE GETS TIRED SO THAT I CAN COME AND PLACE HIM ON CPAP WHEN HE IS READY. RN AWARE AND AT BEDSIDE. WILL CONTINUE TO MONITOR.
--- NOTE | 2018-12-26 02:20 | NUR ---
RT PAGED FOR CPAP. CONTINUE CARE.
--- NOTE | 2018-12-26 08:00 | NUR ---
Opening Shift Note Assumed care of patient, awake and alert, sitting with feet dangling bedside talking with CUT OFF MAN. Patient alert x4. No S/S of distress/SOB or pain. Instructed on POC and to call for assist PRN, will continue to monitor for changes Q1hr and PRN.
[2018-12-26 08:50] VITALS: BP 116/62
[2018-12-26] MEDS: AMIODARONE HCL 200 MG TAB PO SCH ×3 (09:13→21:49)
[2018-12-26] MEDS: CLINDAMYCIN 600MG IV 50 ML IV SCH ×3 (09:13→21:49)
[2018-12-26] MEDS: cefTRIAXone 1GM/50ML D5W 50 ML IV SCH (09:49)
[2018-12-26] MEDS: FUROSEMIDE 40 MG/4 ML VIAL IV SCH (09:50)
[2018-12-26] MEDS: PANTOPRAZOLE 40 MG TAB PO SCH (09:50)
[2018-12-26] MEDS: ASPirin-EC 81 mg tab PO SCH (09:50)
[2018-12-26] MEDS: POTASSIUM CHL 20 Meq TABLET PO SCH (09:50)
[2018-12-26] MEDS: CLOPIDOGREL BISULFATE 75 MG TAB PO SCH (09:51)
[2018-12-26] MEDS: METOPROLOL TARTRATE 50 MG TAB PO SCH ×2 (09:54→21:50)
[2018-12-26] MEDS: ENALAPRIL MALEATE 2.5 MG TAB PO SCH (09:54)
[2018-12-26] MEDS: ENOXAPARIN SOD 40 MG/0.4 ML SYRINGE SC SCH (09:54)
[2018-12-26] MEDS: NITROGLYCERIN 0.2MG/HR TOPICAL PATCH TD SCH (09:55)
--- NOTE | 2018-12-26 10:30 | NUR ---
BM Patient and LEAD SQL DEVELOPER report patient voided BM.
[2018-12-26] MEDS: SPIRONOLACTONE 25 MG TAB PO SCH (12:27)
--- NOTE | 2018-12-26 12:34 | NUR ---
ROUNDS Patient sitting in bed with feet dangling bedside, eating lunch, tolerating well.
[2018-12-26 13:16] VITALS: BP 119/82
[2018-12-26] MEDS: SODIUM CHLORIDE 0.9% 1,000 ML IV SCH (14:28)
[2018-12-26 16:12] VITALS: BP 134/74
--- NOTE | 2018-12-26 19:28 | NUR ---
RECEIVED PATIENT FROM DAY SHIFT RN. PATIENT SITTING AT THE SIDE OF THE BED. NO S/S OF DISTRESS NOTED. DENIED PAIN FOR NOW. RT AT BEDSIDE FOR BREATHING TREATMENT. POC INSTRUCTED AND ENCOURAGED PATIENT TO CALL FOR SCHOOL CROSSING GUARD SUPERVISOR IF NEEDED. BED IN LOWEST POSITION WITH SIDE RAILS UP X 2. CALL HAYES WITHIN REACH. ALARM ON. SITTER AT BEDSIDE FOR SAFETY. CONTINUE TO MONITOR FOR CHANGES Q1H AND PRN.
[2018-12-26] MEDS: ATORVASTATIN 20 MG TAB PO SCH (21:49)
[2018-12-26 22:12] VITALS: BP 138/76
--- NOTE | 2018-12-26 22:55 | NUR ---
REASSESSED BP 123/65, HR 67. CONTINUE TO MONITOR.
[2018-12-27] MEDS: TEMAZEPAM 15 MG CAP PO PRN (00:33)
[2018-12-27] MEDS: ALBUTEROL SULF 2.5 MG/0.5ML(0.5%) NEB SOLN NEB SCH ×3 (00:58→11:39)
[2018-12-27] MEDS: IPRATROPIUM BROM 0.5 MG/2.5ML INH SOL NEB SCH ×3 (00:58→11:39)
--- NOTE | 2018-12-27 00:58 | NUR ---
Respiratory note: PT SEEN FOR ROUTINE CPAP CHECK/SCHEDULED MED NEB TX. PT WAS FOUND OFF OF HIS CPAP AT THIS TIME AND ON A 2L NASAL CANNULA, SP02 98%. PT SAID HE DID NOT WANT TO WEAR IT ANY LONGER FOR THE NIGHT.
--- NOTE | 2018-12-27 01:01 | NUR ---
RT AT BEDSIDE
[2018-12-27] MEDS: SODIUM CHLORIDE 0.9% 1,000 ML IV SCH (04:28)
[2018-12-27 05:28] VITALS: BP 124/74
[2018-12-27] MEDS: CLINDAMYCIN 600MG IV 50 ML IV SCH ×2 (05:44→14:00)
[2018-12-27] MEDS: AMIODARONE HCL 200 MG TAB PO SCH ×2 (05:45→14:00)
[2018-12-27 06:39] LABS: Albumin 3.5 g/dL (3.4-5.0); BUN/Creatinine Ratio 26.5; Bilirubin, Total 0.2 mg/dL (0.2-1.0); Calcium 8.8 mg/dL (8.5-10.1); Potassium 4.6 mmol/L (3.5-5.1)
--- NOTE | 2018-12-27 07:27 | NUR ---
Opening Shift Note Assumed care of patient, awake and alert. No S/S of distress/SOB or pain. Will continue to monitor for changes Q1hr and PRN. NOTE: Patient sitting in bedside chair, call light in reach, R.T. at bedside. Patient placed on room air, patient O2 levels >96% after 5 minutes. Educated on calling with SOB and assistance. Patient denies use of home O2 or CPAP machine. Patient verbalizing he wants to discharge today, reviewed plan of care and discharge process.
--- NOTE | 2018-12-27 07:40 | NUR ---
Oxygen level Patient remains across from nursing station on continuous pulse Ox monitor, saturations at 97% on room air.
[2018-12-27 08:00] VITALS: BP 124/83
[2018-12-27] MEDS: ENALAPRIL MALEATE 2.5 MG TAB PO SCH (10:00)
[2018-12-27] MEDS: METOPROLOL TARTRATE 50 MG TAB PO SCH (10:00)
[2018-12-27] MEDS: NITROGLYCERIN 0.2MG/HR TOPICAL PATCH TD SCH (10:00)
[2018-12-27] MEDS: ENOXAPARIN SOD 40 MG/0.4 ML SYRINGE SC SCH (10:00)
[2018-12-27] MEDS: FUROSEMIDE 40 MG/4 ML VIAL IV SCH (10:04)
[2018-12-27] MEDS: cefTRIAXone 1GM/50ML D5W 50 ML IV SCH (10:04)
[2018-12-27] MEDS: CLOPIDOGREL BISULFATE 75 MG TAB PO SCH (10:05)
[2018-12-27] MEDS: ASPirin-EC 81 mg tab PO SCH (10:05)
[2018-12-27] MEDS: PANTOPRAZOLE 40 MG TAB PO SCH (10:05)
[2018-12-27] MEDS: POTASSIUM CHL 20 Meq TABLET PO SCH (10:05)
[2018-12-27] MEDS: SPIRONOLACTONE 25 MG TAB PO SCH (10:12)
--- NOTE | 2018-12-27 10:25 | NUR ---
rounding Dr Martell rounding on patient with primary RN.
--- NOTE | 2018-12-27 10:55 | NUR ---
Dr Martell states Dr Marcano recommends patient f/u outpatient in 6 weeks for [address] Pacemaker. Dr Martell will return at later time for possible discharge.
--- NOTE | 2018-12-27 11:11 | NUR ---
Patient ambulating hallway, tolerating well.
[2018-12-27 12:00] VITALS: BP 136/95
--- NOTE | 2018-12-27 14:45 | NUR ---
TELE REMOVED Patient removed tele monitor and refuses to put it back on stating he might discharge home today. Informed of orders and safety risks.
--- NOTE | 2018-12-27 16:00 | NUR ---
DR LION PAGEMadhuri Patient continues to ask if he can go home. Dr Jasbir brown. Doctor states he will discharge patient in am.
--- NOTE | 2018-12-27 16:27 | NUR ---
AMA Note LAURI SHIELDS states they want to leave the hospital Against Medical Advice (AMA). Patient encouraged to stay for further treatment/stabilization. Dr Sergio Martell notified of patient's wishes. Patient advised of the risks and benefits of leaving AMA. Patient verbalized understanding. Patient encouraged to return to the ER if symptoms do not improve or worsen. IV removed with catheter intact, pressure dressing applied. Patients daughter transported patient home.
--- NOTE | 2018-12-27 17:00 | NUR ---
assessment Patient left AMA prior to being assessed. Addendum: 12/28/18 at 1547 by Genny MCGUIRE Amended: Links added.
[2018-12-28 12:57] LABS: Hepatitis A Ab IgM Negative; Hepatitis B Core IgM Negative; Hepatitis B Surface Antigen Negative (Negative); Hepatitis C Antibody Negative (Negative)
== END 2018-12-27 16:42 | disposition left against medical advice (07) | DRG 280 ==
LOC: ER 08:47 → TELE 08:48 → TELE-WESTW 14:12
PROVIDERS: ADMIT Internal Medicine; ATTEND Family Medicine
DX: I25.10 Atherosclerotic heart disease of native coronary artery without angina pectoris (principal); I21.4 Non-ST elevation (NSTEMI) myocardial infarction; I50.23 Acute on chronic systolic (congestive) heart failure; L03.115 Cellulitis of right lower limb; J44.1 Chronic obstructive pulmonary disease with (acute) exacerbation; B19.9 Unspecified viral hepatitis without hepatic coma; I11.0 Hypertensive heart disease with heart failure; Z95.5 Presence of coronary angioplasty implant and graft; I25.5 Ischemic cardiomyopathy; E66.9 Obesity, unspecified; E78.5 Hyperlipidemia, unspecified; Z68.29 Body mass index [BMI] 29.0-29.9, adult; G47.30 Sleep apnea, unspecified; Z53.21 Procedure and treatment not carried out due to patient leaving prior to being seen by health care provider; Z88.8 Allergy status to other drugs, medicaments and biological substances; Z53.20 Procedure and treatment not carried out because of patient's decision for unspecified reasons; Z68.31 Body mass index [BMI] 31.0-31.9, adult; E78.00 Pure hypercholesterolemia, unspecified; F12.90 Cannabis use, unspecified, uncomplicated; Z83.3 Family history of diabetes mellitus; F17.200 Nicotine dependence, unspecified, uncomplicated; J44.9 Chronic obstructive pulmonary disease, unspecified; R09.02 Hypoxemia; Z91.19 Patient's noncompliance with other medical treatment and regimen; Z95.1 Presence of aortocoronary bypass graft
CPT/HCPCS: 36415; 70450; 71046; 80053; 80074; 80307; 82550; 83735; 83880; 84484; 85025; 85610; 85730; 87081; 93005; 93971; 94640; 94660; 94761; 94762; 96365; 96367; 96375; G0378; J0696; J3490; J7060

== ENCOUNTER → 2019-02-02 | Outpatient (CLI) | payer MEDICARE ==
[~2019-02-02] MED LIST: ASPI-231 PO; ATOR40TA52 PO; CLOP75TA41 PO; FURO40TA4 PO; MET50T PO; METO25TA5 PO; SPIR25TA8 PO
[2019-02-02 07:44] LABS: Basophils # (auto) 0.1 uL; Basophils % (auto) 1.9 % (0.0-2.0); Eosinophils # (auto) 0.4 uL; Eosinophils % (auto) 6.3 % (0.0-7.0); Hematocrit 41.6 % (41.0-53.0); Lymphocytes # (auto) 1.9 uL; Mean Corpuscular Hemoglobin 29.8 pg (28.0-32.0); Mean Corpuscular Hgb Conc. 33.6 g/dL (32.0-36.0); Mean Corpuscular Volume 88.5 fL (80.0-100.0); Monocytes # (auto) 0.3 uL; Monocytes % (auto) 5.2 % (0.0-12.0); Neutrophils % (auto) 58.6 % (37.0-80.0); Nucleated Red Blood Cells % 0.1 %; Platelet Count (auto) 199 10^3/uL (140-450); White Blood Cell 6.7 10^3/uL (4.4-10.8)
[2019-02-02 08:10] LABS: Albumin 3.7 g/dL (3.4-5.0); Potassium 4.9 mmol/L (3.5-5.1)
[2019-02-02 08:14] LABS: BUN/Creatinine Ratio 21.7; Bilirubin, Total 0.3 mg/dL (0.2-1.0); Total Protein 7.5 g/dL (6.4-8.2)
== END | disposition home or self-care (01) ==
LOC: LAB 07:12
PROVIDERS: ATTEND Internal Medicine Nephrology
DX: I13.0 Hypertensive heart and chronic kidney disease with heart failure and stage 1 through stage 4 chronic kidney disease, or unspecified chronic kidney disease (principal); I50.9 Heart failure, unspecified; N18.9 Chronic kidney disease, unspecified
CPT/HCPCS: 36415; 80053; 80061; 83880; 85025

== ENCOUNTER → 2019-02-15 | Outpatient (CLI) | payer MEDICARE ==
[~2019-02-15] MED LIST changes: +FURO20TA3 PO
== END | disposition home or self-care (01) ==
LOC: Rad HDHVI 08:39
PROVIDERS: ATTEND Internal Medicine Cardiovascular Disease
DX: I34.0 Nonrheumatic mitral (valve) insufficiency (principal); I10 Essential (primary) hypertension
CPT/HCPCS: 93306

== ENCOUNTER → 2019-02-19 | Outpatient (CLI) | payer MEDICARE ==
[2019-02-19 11:14] VITALS: BP 121/78
[2019-02-19 11:30] VITALS: BP 131/70
--- NOTE | 2019-02-19 11:30 | NUR ---
PRE-OP FOR LEFT HEART CATH FOR 02/22/19 Pre-Op Discharge Summary: See e-MAR for any medications given for this visit. Pre-op orders received and carried out per MD of EKG, LABS and chest xrays. Patient given a copy of EKG with instructions to go to [facility] out patient for further follow up care.
[2019-02-19 16:05] LABS: BUN/Creatinine Ratio 15.7; Calcium 9.3 mg/dL (8.5-10.1); Potassium 4.1 mmol/L (3.5-5.1)
[2019-02-19 16:20] LABS: Basophils # (auto) 0.1 uL; Eosinophils # (auto) 0.2 uL; Eosinophils % (auto) 3.8 % (0.0-7.0); Lymphocytes # (auto) 1.8 uL; Lymphocytes % (auto) 28.2 % (10.0-50.0); Mean Corpuscular Hgb Conc. 32.6 g/dL (32.0-36.0); Mean Corpuscular Volume 91.9 fL (80.0-100.0); Monocytes # (auto) 0.4 uL; Monocytes % (auto) 6.6 % (0.0-12.0); Neutrophils # (auto) 3.8 uL; Neutrophils % (auto) 60.4 % (37.0-80.0); Nucleated Red Blood Cells % 0.2 %; Platelet Count (auto) 217 10^3/uL (140-450); Red Blood Cells 4.68 10^6/uL (4.5-5.90); Red Cell Distribution Width 15.7 % (11.8-14.3); White Blood Cell 6.2 10^3/uL (4.4-10.8)
[2019-02-19 16:54] LABS: INR 0.96 (0.9-1.15); Partial Thromboplastin Time 25.9 sec (23.64-32.05)
== END | disposition home or self-care (01) ==
LOC: Rad HDHVI 10:59
PROVIDERS: ATTEND Internal Medicine Cardiovascular Disease
DX: Z01.812 Encounter for preprocedural laboratory examination (principal); I70.0 Atherosclerosis of aorta; I11.0 Hypertensive heart disease with heart failure; I50.9 Heart failure, unspecified; I25.10 Atherosclerotic heart disease of native coronary artery without angina pectoris
CPT/HCPCS: 36415; 71046; 80048; 85025; 85610; 85730; 93005; G0463

== ENCOUNTER 2019-02-22 07:20 | Day surgery (SDC) | payer MEDICARE ==
[~2019-02-22] VITALS: Ht 175.3 cm; Wt 95.3 kg
[~2019-02-22 07:20] MED LIST changes: -ATOR40TA52 PO; -FURO40TA4 PO; -MET50T PO
[2019-02-22] MEDS ORDERED: ANGIOMAX 250 MG VIAL IV ONE (09:32)
[2019-02-22] MEDS ORDERED: VERAPAMIL 2.5MG/ML INJ 2ML VIAL IV ONE (09:32)
[2019-02-22] MEDS ORDERED: fentaNYL CITRATE 100 MCG/2 ML VL ONE (09:33)
[2019-02-22] MEDS ORDERED: IOHEXOL 350 MG/ML 100ML IJ ONE (09:33)
[2019-02-22] MEDS ORDERED: LIDOCAINE 2%HCL (LOCAL ANESTH.) INJ 20ML MDV ONE (09:33)
[2019-02-22] MEDS ORDERED: SODIUM CHL 0.9% 50 ML ONE (09:33)
[2019-02-22] MEDS ORDERED: MIDAZOLAM HCL 1MG/1ML-2 ML VIAL ONE (09:33)
== END 2019-02-22 12:57 | disposition home or self-care (01) ==
LOC: CATH 07:20
PROVIDERS: ATTEND Internal Medicine Cardiovascular Disease
DX: I25.10 Atherosclerotic heart disease of native coronary artery without angina pectoris (principal); I11.0 Hypertensive heart disease with heart failure; I50.9 Heart failure, unspecified; E78.5 Hyperlipidemia, unspecified; J44.9 Chronic obstructive pulmonary disease, unspecified; G47.30 Sleep apnea, unspecified; E11.9 Type 2 diabetes mellitus without complications; I25.2 Old myocardial infarction; F12.90 Cannabis use, unspecified, uncomplicated; Z87.891 Personal history of nicotine dependence; Z79.82 Long term (current) use of aspirin; Z79.899 Other long term (current) drug therapy; Z98.890 Other specified postprocedural states; Z88.1 Allergy status to other antibiotic agents; Z95.818 Presence of other cardiac implants and grafts
CPT/HCPCS: 93454; C1769; C1887; C1894; J0583; J1644; J2250; J3010; Q9967; 99152; 99153